=== PATIENT | female | born 1995 | race Caucasian/White ===

== ENCOUNTER → 2017-10-04 | Outpatient (REF) | payer BC | LOC: M LAB REF 14:01 | DX: Z12.4 Encounter for screening for malignant neoplasm of cervix (principal) | CPT/HCPCS: G0123 ==

== ENCOUNTER → 2018-11-14 | Outpatient (REF) | payer BC | LOC: M LAB REF 13:22 | PROVIDERS: ATTEND Advanced Practice Midwife | DX: Z12.4 Encounter for screening for malignant neoplasm of cervix (principal) ==

== ENCOUNTER 2022-10-14 13:50 | Outpatient (CLI) | payer BC ==
[~2022-10-14] VITALS: Ht 167.6 cm; Wt 72.4 kg
[2022-10-14 14:14] VITALS: BP 115/64
[2022-10-14] MEDS ORDERED: PRENTAB9 PO (14:16)
[2022-10-14] MEDS ORDERED: metroNIDAZOLE (FLAGYL) 500MG TABLET PO ONE (16:00)
[2022-10-14 16:15] VITALS: BP 113/61
[2022-10-14 16:53] LABS: GC DNA AMPLIFICATION NEGATIVE (NEGATIVE)
== END 2022-10-14 17:47 | disposition home or self-care (01) ==
LOC: M LDO 13:50
PROVIDERS: ATTEND Advanced Practice Midwife
DX: O26.852 Spotting complicating pregnancy, second trimester (principal); O23.592 Infection of other part of genital tract in pregnancy, second trimester; Z3A.27 27 weeks gestation of pregnancy
CPT/HCPCS: 59025; 76811; 76815; 76820; 87661; 87810; 87850; G0463